=== PATIENT | male | born 1950 | race Caucasian/White ===

== ENCOUNTER 2017-08-05 07:09 | Day surgery (SDC) | payer OTHER ==
[2017-08-05] MEDS ORDERED: PROPOFOL 60 ML (09:39)
[2017-08-05] MEDS ORDERED: LIDOCAINE 2% (SDV) 5 ML INJ (09:40)
== END 2017-08-05 11:45 | disposition home or self-care (01) ==
LOC: GIL 07:09
DX: Z12.11 Encounter for screening for malignant neoplasm of colon (principal); K64.8 Other hemorrhoids; I10 Essential (primary) hypertension
CPT/HCPCS: 45378